=== PATIENT | male | born 1980 | race African-American/Black ===

== ENCOUNTER 2019-03-25 12:32 | Emergency (ER) | payer OTHER ==
--- NOTE | 2019-03-25 14:32 | RAD REPORT ---
EXAM DESCRIPTION: CT - Head Brain Wo Cont - 03/25/2019 2:22 pm CLINICAL HISTORY: Headache, left-sided facial swelling COMPARISON: None. TECHNIQUE: Axial 5 mm thick images of the head were obtained without IV contrast. All CT scans are performed using dose optimization technique as appropriate and may include automated exposure control or mA/KV adjustment according to patient size. FINDINGS: No intracranial hemorrhage, mass, edema or shift of mid-line structures. No acute infarcti on changes seen. No abnormal extra-axial fluid collections. Ventricles are normal. Mastoid air cells and visualized portions of the paranasal sinuses are clear. No acute bony findings. IMPRESSION: Negative non-contrast CT head examination.
--- NOTE | 2019-03-25 14:35 | RAD REPORT ---
EXAM DESCRIPTION: CT - Facial Bones W/ Mpr - 03/25/2019 2:22 pm CLINICAL HISTORY: Headache, left-sided facial swelling COMPARISON: None. TECHNIQUE: Axial 2 millimeter thick images of the facial bones were obtained with sagittal and coron al reconstruction imaging. All CT scans are performed using dose optimization technique as appropriate and may include automated exposure control or mA/KV adjustment according to patient size. FINDINGS: No mandible fracture. Condyles of the mandible are normally positioned. Mastoid air cells are clear. No skullbase fracture. No globe or orbital content abnormality seen. Paranasal sinuses are clear. Submental lymphadenopathy is present. Small bilateral cervical lymph nodes are present. No bulky lymp hadenopathy seen. The parotid, submandibular and thyroid gland tissues are within limits of normal. No air or foreign body in the soft tissues. Left-sided facial tissues are not grossly asymmetric or a bnormal relative to the right. IMPRESSION: No focal abnormality seen in the left-side facial tissues. No suspicious globe, orbital content, sinus or facial bone abnormality seen.
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
[2019-03-25 15:01] VITALS: BP 128/80; TEMP 98.7; O2SAT 100
== END 2019-03-25 14:48 | disposition home or self-care (01) ==
LOC: ER 12:32
DX: R22.9 Localized swelling, mass and lump, unspecified (principal); Z72.0 Tobacco use
CPT/HCPCS: 70450; 70486; 76377; 99283

== ENCOUNTER 2019-05-22 | Emergency (ER) | payer OTHER ==
--- NOTE | 2019-05-22 21:08 | EDPHYS ---
Physician Documentation [facility] Name: Yaw Rushing Age: 38 yrs Sex: Male : 1980 Arrival Date: 05/22/2019 Time: 20:04 Bed 20 Private MD: ED Physician Jose Candelaria HPI: 05/21 21:45 This 38 yrs old Black Male presents to ER via Ambulatory with complaints of Headache, snw Cough. 21:45 The patient complains of pain to the forehead, right eye, right cheek, nose, left cheek snw and left eye. The patient describes the headache as a pressure. Onset: The symptoms/episode began/occurred gradually. Associated signs and symptoms: Pertinent positives: malaise, sinus congestion, sinus tenderness, headache, cough. Headache History: Other frequent, recurrent sinusitis. The patient has experienced similar episodes in the past, multiple times, chronically, with the last episode occurring last month. The patient has been recently seen by a physician: the patient's primary care provider. 21:[address] in Mar 2019. snw Historical: - Allergies: 20:17 fish; aj1 20:17 almonds; aj1 20:17 peanuts; aj1 20:17 Soy; aj1 - Home Meds: 20:17 montelukast oral oral [Active]; aj1 - PMHx: 20:17 concussion; aj1 - PSHx: 20:17 None; aj1 - Immunization history:: Flu vaccine is up to date. - Social history:: Smoking status: Patient/guardian denies using tobacco. ROS: 21:43 Constitutional: Negative for fever, chills, and weight loss, Cardiovascular: Negative snw for chest pain, palpitations, and edema, Abdomen/GI: Negative for abdominal pain, nausea, vomiting, diarrhea, and constipation, Back: Negative for injury and pain, : Negative for injury, bleeding, discharge, and swelling, MS/Extremity: Negative for injury and deformity, Skin: Negative for injury, rash, and discoloration, Neuro: Negative for headache, weakness, numbness, tingling, and seizure. 21:43 Neck: Negative for injury, pain, and swelling. 21:43 Eyes: Positive for itching, tearing. 21:43 ENT: Positive for nasal discharge, rhinorrhea, sinus congestion, sinus pain. 21:43 Respiratory: Positive for cough, with no reported sputum. Exam: 21:42 Constitutional: This is a well developed, well nourished patient who is awake, alert, snw and in no acute distress. Eyes: Pupils equal round and reactive to light, extra-ocular motions intact. Lids and lashes normal. Conjunctiva and sclera are non-icteric and not injected. Cornea within normal limits. Periorbital areas with no swelling, redness, or edema. Neck: Trachea midline, no thyromegaly or masses palpated, and no cervical lymphadenopathy. Supple, full range of motion without nuchal rigidity, or vertebral point tenderness. No Meningismus. Chest/axilla: Normal chest wall appearance and motion. Nontender with no deformity. No lesions are appreciated. Cardiovascular: Regular rate and rhythm with a normal S1 and S2. No gallops, murmurs, or rubs. Normal PMI, no JVD. No pulse deficits. Respiratory: Lungs have equal breath sounds bilaterally, clear to auscultation and percussion. No rales, rhonchi or wheezes noted. No increased work of breathing, no retractions or nasal flaring. Abdomen/GI: Soft, non-tender, with normal bowel sounds. No distension or tympany. No guarding or rebound. No evidence of tenderness throughout. Back: No spinal tenderness. No costovertebral tenderness. Full range of motion. Skin: Warm, dry with normal turgor. Normal color with no rashes, no lesions, and no evidence of cellulitis. MS/ Extremity: Pulses equal, no cyanosis. Neurovascular intact. Full, normal range of motion. Neuro: Awake and alert, GCS 15, oriented to person, place, time, and situation. Cranial nerves II-XII grossly intact. Motor strength 5/5 in all extremities. Sensory grossly intact. Cerebellar exam normal. Normal gait. Psych: Awake, alert, with orientation to person, place and time. Behavior, mood, and affect are within normal limits. 21:42 Head/face: Sinus tenderness, that is moderate, is located over the right frontal sinus, left frontal sinus, right ethmoid sinus, left ethmoid sinus, right maxillary sinus and left maxillary sinus. 21:42 ENT: Ear canal(s): are normal, TM's: are normal, Nose: Nasal mucosa: edematous, Mouth: is normal, Posterior pharynx: is normal, Voice: is normal. Vital Signs: 20:13 BP 138 / 85; Pulse 73; Resp 18; Temp 97.7; Pulse Ox 96% on R/A; Weight 93.89 kg (R); aj1 Height 5 ft. 6 in. (167.64 cm) (R); Pain 8/10; 20:15 BP 134 / 87; Pulse 76; Resp 18; Pulse Ox 97% on R/A; vc 21:00 BP 132 / 84; Pulse 74; Resp 17; Pulse Ox 98% on R/A; vc 20:13 Body Mass Index 33.41 (93.89 kg, 167.64 cm) aj1 MDM: 20:54 Patient medically screened. snw 21:43 Data reviewed: vital signs, nurses notes. Data interpreted: Pulse oximetry: on room air snw is 98 %. Interpretation: normal. Counseling: I had a detailed discussion with the patient and/or guardian regarding: the historical points, exam findings, and any diagnostic results supporting the discharge/admit diagnosis, the need for outpatient follow up, to return to the emergency department if symptoms worsen or persist or if there are any questions or concerns that arise at home. Special discussion: I have referred the patient to see his PCP for further evaluation of high blood pressure. Based on the history and exam findings, there is no indication for further emergent testing or inpatient evaluation. I discussed with the patient/guardian the need to see the ENT specialist for further evaluation of the symptoms. I discussed with the patient/guardian the need to see the primary care provider for further evaluation of the symptoms. Administered Medications: No medications were administered Disposition: 05/22/19 21:07 Discharged to Home. Impression: Acute sinusitis. - Condition is Stable. - Discharge Instructions: Sinusitis, Adult. - Prescriptions for Amoxicillin 875 mg Oral Tablet - take 1 tablet by ORAL route every 12 hours for 14 days; 28 tablet. - Work release form, Medication Reconciliation Form, Thank You Letter, Antibiotic Education, Prescription Opioid Use form. - Follow up: Emergency Department; When: As needed; Reason: Worsening of condition. Follow up: Private Physician; When: 2 - 3 days; Reason: Recheck today's complaints, Continuance of care, Re-evaluation by your physician. Follow up: Steffi Nguyễn MD; When: 1 week; Reason: Recheck today's complaints, Continuance of care. Addendum: 05/24/2019 01:30 Co-signature as Attending Physician, Jose Candelaria MD. m a2 Signatures: Chanel Jaime RN RN aj1 Rita Ruvalcaba, [employer]ER[employer] REVIEW APPRAISER-C COMMERCIAL REVIEW APPRAISER-Csnw Jose Candelaria MD MD ma2 Khalida Clancy RN RN vc Corrections: (The following items were deleted from the chart) 05/21 21:28 21:07 05/22/2019 21:07 Discharged to Home. Impression: Acute sinusitis. Condition is vc Stable. Forms are Medication Reconciliation Form, Thank You Letter, Antibiotic Education, Prescription Opioid Use. Follow up: Emergency Department; When: As needed; Reason: Worsening of condition. Follow up: Private Physician; When: 2 - 3 days; Reason: Recheck today's complaints, Continuance of care, Re-evaluation by your physician. Follow up: Steffi Nguyễn; When: 1 week; Reason: Recheck today's complaints, Continuance of care. snw
--- NOTE | 2019-05-22 21:08 | ER ---
Nurse's Notes [facility] Name: Yaw Rushing Age: 38 yrs Sex: Male : 1980 Arrival Date: 05/22/2019 Time: 20:04 Bed 20 Private MD: Diagnosis: Acute sinusitis Presentation: 05/21 20:13 Chief complaint: Patient states: His eyes and nose have been burning, he has had nasal aj1 congestion and discharge, headache, facial pain, abdominal pain, diarrhea, and cough. Patient reports that his chest hurts when he coughs. Coronavirus screen: The patient has NOT traveled to a country currently being monitored by the [facility] within the last 14 days. Ebola Screen: Patient denies travel to an Ebola-affected area in the 21 days before illness onset. Initial Sepsis Screen: Does the patient meet any 2 criteria? No. Patient's initial sepsis screen is negative. Does the patient have a suspected source of infection? No. Patient's initial sepsis screen is negative. Risk Assessment: Do you want to hurt yourself or someone else? Patient reports no desire to harm self or others. 20:13 Method Of Arrival: Ambulatory aj 20:13 Acuity: [place] 4 aj1 20:47 Onset of symptoms. vc Triage Assessment: 20:17 Headache History: Denies prior headaches. General: Appears in no apparent distress. aj1 comfortable, Behavior is calm, cooperative, appropriate for age. Pain: Complains of pain in face, scalp, chest and abdomen Pain does not radiate. Pain currently is 8 out of 10 on a pain scale. Also complains of nausea. Neuro: Level of Consciousness is awake, alert, obeys commands, Oriented to person, place, time, situation, Speech is normal, Facial symmetry appears normal. Cardiovascular: Patient's skin is warm and dry. Respiratory: Airway is patent Respiratory effort is even, unlabored, Respiratory pattern is regular, symmetrical. 20:47 Pain: Pain began gradually. vc Historical: - Allergies: 20:17 fish; aj1 20:17 almonds; aj1 20:17 peanuts; aj1 20:17 Soy; aj1 - Home Meds: 20:17 montelukast oral oral [Active]; aj1 - PMHx: 20:17 concussion; aj1 - PSHx: 20:17 None; aj1 - Immunization history:: Flu vaccine is up to date. - Social history:: Smoking status: Patient/guardian denies using tobacco. Screenin:46 Abuse screen: Denies threats or abuse. Nutritional screening: No deficits noted. vc Tuberculosis screening: No symptoms or risk factors identified. Fall Risk None identified. Assessment: 20:48 General: Appears in no apparent distress. uncomfortable, Behavior is calm, cooperative, vc appropriate for age. Pain: Complains of pain in abdomen and chest and scalp and face. Neuro: Level of Consciousness is awake, alert, obeys commands, Oriented to person, place, time, situation, Appropriate for age. Cardiovascular: Patient's skin is warm and dry. Respiratory: Airway is patent Respiratory effort is even, unlabored, Respiratory pattern is regular, symmetrical. GI: Reports upper abdominal pain. : No signs and/or symptoms were reported regarding the genitourinary system. EENT: Reports nasal congestion. Derm: Skin temperature is warm. Musculoskeletal: Circulation, motion, and sensation intact. Range of motion: intact in all extremities. Vital Signs: 20:13 BP 138 / 85; Pulse 73; Resp 18; Temp 97.7; Pulse Ox 96% on R/A; Weight 93.89 kg (R); aj1 Height 5 ft. 6 in. (167.64 cm) (R); Pain 8/10; 20:15 BP 134 / 87; Pulse 76; Resp 18; Pulse Ox 97% on R/A; vc 21:00 BP 132 / 84; Pulse 74; Resp 17; Pulse Ox 98% on R/A; vc 20:13 Body Mass Index 33.41 (93.89 kg, 167.64 cm) aj1 ED Course: 20:04 Patient arrived in ED. es 20:09 Rita Ruvalcaba FNP-C is PHCP. snw 20:09 Jose Candelaria MD is Attending Physician. snw 20:13 Chanel Jaime, ROSE is Primary Nurse. aj1 20:15 Triage completed. aj1 20:17 Arm band placed on. aj1 20:48 Bed in low position. Call light in reach. Pulse ox on. NIBP on. vc 21:06 Steffi Nguyễn MD is Referral Physician. snw 21:27 No provider procedures requiring assistance completed. Patient did not have IV access vc during this emergency room visit. Administered Medications: No medications were administered Outcome: 21:07 Discharge ordered by . eris 21:27 Discharged to home ambulatory, with significant other. vc 21: Condition: good 21:27 Discharge instructions given to patient, significant other, Instructed on discharge instructions, follow up and referral plans. medication usage, Demonstrated understanding of instructions, follow-up care, medications, Prescriptions given X 1. 21:28 Patient left the ED. vc Signatures: Chanel Jaime RN RN aj1 Rita Ruvalcaba, LEARNING AND DEVELOPMENT DIRECTOR-C LEARNING AND DEVELOPMENT DIRECTOR-Csnw Trish Murillo Vanessa, RN RN vc
== END 2019-05-22 21:28 | disposition home or self-care (01) ==
CPT/HCPCS: 99283